=== PATIENT | female | born 1995 | race Two or more races ===

== ENCOUNTER 2016-10-22 21:06 | Emergency (ER) | payer OTHER ==
[2016-10-22 21:39] VITALS: BP 124/62; PULSE 78; RESP 18; TEMP 98; O2SAT 97
--- NOTE | 2016-10-22 22:32 | UCPHY ---
H & P Time Seen by Provider: 10/22/16 22:10 Patient Type: Established HPI/ROS: 21-year-old female presents complaining of earache and sore throat, she states she is being treated for strep with Augmentin. She has taken Augmentin for 3 days. She complains if she has worsening nasal congestion. She states her sore throat is actually improving. She has not been using a decongestant or a nasal spray. Review of systems As per HPI positive URI symptoms positive nasal congestion General no fever no chills no weakness HEENT no eye pain no eye discharge. No eye redness, positive sore throat Respiratory no cough, no shortness of breath Cardiac no chest pain, no peripheral edema GI no abdominal pain, no diarrhea, no constipation, no nausea, no vomiting no flank pain, no hematuria, no dysuria Musculoskeletal no myalgias, no joint pain Heme no easy bruising, no easy bleeding Endo no polyuria, no polydipsia Skin no rashes, no pruritus Neuro no syncope, no dizziness, no headaches Psych is no suicidal ideation, no homicidal ideation Past Medical/Surgical History: Depression Social History: College student Smoking Status: Never smoked Physical Exam: Alert and oriented in no acute distress nontoxic appearance, afebrile Atraumatic normocephalic Extraocular muscles intact, anicteric Right TM mild erythema no bulging, left TM normal Neck-supple, positive anterior cervical lymphadenopathy mildly tender to palpation Oropharynx positive enlarged tonsils, erythematous, no uvular deviation, no purulent exudate, tolerating own secretions, no trismus Lungs clear to auscultation bilaterally Heart regular rate and rhythm Abdomen normoactive bowel sounds soft nontender Extremities no cyanosis clubbing edema Skin no rash Constitutional: Initial Vital Signs Temperature (C) 36.6 C 10/22/16 21:37 Heart Rate 78 10/22/16 21:37 Respiratory Rate 18 10/22/16 21:37 Blood Pressure 124/62 H 10/22/16 21:37 O2 Sat (%) 97 10/22/16 21:37 O2 Delivery Mode Room Air Allergies/Adverse Reactions: No Known Allergies Allergy (Unverified 07/18/16 19:41) Home Medications: Medication Instructions Recorded Mononessa 28 Tablet 07/18/16 Sertraline HCl 07/18/16 Medical Decision Making ED Course/Re-evaluation: Patient seen and evaluated for nasal congestion, earache, actually improving sore throat Patient on Augmentin x3 days Physical exam consistent with mild right otitis media, pharyngitis and nasal congestion Impression Right otitis media Nasal congestion Plan Continue Augmentin for full course Use a decongestant daily Increase fluid intake Nasal steroid such as fluticasone daily x7 days Follow up with primary care physician if not improving Departure - Departure Disposition: Home, Routine, Self-Care Clinical Impression: Nasal congestion, Right otitis media Condition: Good Instructions: Pseudoephedrine (By mouth), Otitis Media (ED), Rhinosinusitis (ED ) Additional Instructions: Use a decongestant such as sudafed, or mucinex. Drink lots of liquids Flonase or fluticasone 2 puffs each nostril for 5-7 days Referrals: NONE *PRIMARY CARE P,. [Primary Care Provider] - As per Instructions - PQRS PQRS Measurement: na
== END 2016-10-22 22:50 | disposition home or self-care (01) ==
LOC: CED 21:06
DX: H66.91 Otitis media, unspecified, right ear (principal); R09.81 Nasal congestion; R07.0 Pain in throat
CPT/HCPCS: 99213-PO; G0463-PO

== ENCOUNTER 2017-12-10 10:06 | Emergency (ER) | payer OTHER ==
[2017-12-10 10:51] LABS: PLATELET COUNT 268 10^3/uL (150-400)
--- NOTE | 2017-12-10 11:07 | EDPHY ---
H & P Stated Complaint: periumb pain N/V/D since this am Time Seen by Provider: 12/10/17 11:06 HPI/ROS: HPI: This is a 22-year-old female who presents with Chief Complaint: periumbilical pain N/V/D since this am Location: Periumbilical Quality: Nausea, vomiting, diarrhea Duration: Approximately 3-5 hours prior to arrival Signs and Symptoms: no fever, no nausea, no vomiting, no hematemesis, no blood in stool, no abdominal bloating, no diarrhea, no back pain, no urinary symptoms , no testicular/groin pain, no indigestion, no chest pain, no shortness of breath Timing: Acute, intermittent episodes Severity: [id number] Context: Patient is a local [employer] student presents with waking up this morning approximately 3-5 hours prior to arrival with complaints of nausea, vomiting of stomach contents x2, and 3 loose stools. She denies any hematemesis/blood in stool/fever. She has roommates and works at [employer]. She is very concerned as she feels weak and is unable to take her final this evening. Takes oral control pills and does not get a regular period. She is sexually active but does not have concerns of being or having an STD. Denies vaginal discharge/vaginal bleeding. She has been able to sip some Gatorade prior to arrival. She took and over to the emergency room. No recent foreign travel or antibiotic use. Modifying Factors: None Comment: ROS: see HPI Constitutional: No fever, no chills, no weight loss Eyes: No blurred vision Respiratory: No shortness of breath, no cough Cardiovascular: No chest pain, no palpitations Gastrointestinal: + nausea, + vomiting, + diarrhea, no hematemesis, no blood in stool Genitourinary: No dysuria, no blood in urine Extremities: No myalgias, no edema Neurologic: No weakness, no numbness Skin: No rashes, no petechiae Hematologic: No bruising, no bleeding MEDICAL/SURGICAL/SOCIAL HISTORY: Medical history: Migraines, major depression Surgical history: Denies Social history: Family history noncontributory. CONSTITUTIONAL: Extremely polite and nontoxic-appearing young adult white female, awake and alert, no obvious distress HEENT: Atraumatic and normocephalic, PERRL, EOMI. Nares patent; no rhinorrhea; no nasal mucosal edema. Tympanic membranes clear. Oropharynx clear, no exudate and moist pink mucosa. Airway patent. No lymphadenopathy. No meningismus. Cardiovascular: Normal S1/S2, regular rate, regular rhythm, without murmur rub or gallop. PULMONARY/CHEST: Symmetrical and nontender. Clear to auscultation bilaterally. Good air movement. No accessory muscle usage. ABDOMEN: Soft, nondistended, nontender, no rebound, no guarding, no peritoneal signs, no masses or organomegaly. No CVAT. EXTREMITIES: 2/2 pulses, strength 5/5, no deformities, no clubbing, no cyanosis or edema. NEUROLOGICAL: no focal neuro deficits. GCS 15. SKIN: Warm and dry, no erythema. no rash. Good capillary refill. Source: Patient Exam Limitations: No limitations - Personal History Current Tetanus/Diphtheria Vaccine: Unsure - Medical/Surgical History Hx Asthma: No Hx Chronic Respiratory Disease: No Hx Diabetes: No Hx Cardiac Disease: No Hx Renal Disease: No Hx Cirrhosis: No Hx Alcoholism: No Hx HIV/AIDS: No Hx Splenectomy or Spleen Trauma: No Other PMH: migraines, depression - Social History Smoking Status: Never smoked Constitutional: Initial Vital Signs Temperature (C) 37.1 C 12/10/17 10:12 Heart Rate 79 12/10/17 10:12 Respiratory Rate 16 12/10/17 10:12 Blood Pressure 135/77 H 12/10/17 10:12 O2 Sat (%) 98 12/10/17 10:12 O2 Delivery Mode Room Air Allergies/Adverse Reactions: No Known Allergies Allergy (Verified 12/10/17 10:12) Home Medications: Medication Instructions Recorded Mononessa 28 Tablet 07/18/16 Sertraline HCl 07/18/16 Cefuroxime Axetil [Ceftin (*)] 250 mg PO BID #14 tab 12/10/17 Ondansetron Odt [Zofran Odt 4 mg 4 mg PO Q4 PRN #12 tab 12/10/17 (*)] Medical Decision Making ED Course/Re-evaluation: Labs, urinalysis, IV fluids, IV medications ordered Vital signs reviewed and no systemic signs. Given 1 L normal saline, IV Zofran, IV Toradol upon arrival Doubt female abdominal pathology. Labs reviewed and show mild leukocytosis with left shift. No acute kidney injury/electrolyte imbalance/elevated LFTs Urinalysis shows infection; sent for urine culture; given 2 g IV Rocephin and prescription for Ceftin Passed p.o. Trial prior to discharge. Abdomen is relatively soft and benign; doubt surgical process including low yield for appendicitis. Given school excuse per patient request as she has finals this evening. This patient was seen under the supervision of my secondary supervising physician. I evaluated care for this patient independently. Differential Diagnosis: Abdominal pain including but not limited to appendicitis, cholecystitis, gastritis and urinary tract infection. - Data Points Laboratory Results: Laboratory Results 12/10/17 10:40 12/10/17 10:40 12/10/17 12/10/17 12/10/17 10:40 10:40 10:40 WBC 12.93 10^3/uL H 10^3/uL (3.80-9.50) RBC 4.73 10^6/uL 10^6/uL (4.18-5.33) Hgb 14.7 g/dL g/dL (12.6-16.3) Hct 41.5 % % (38.0-47.0) MCV 87.7 fL fL (81.5-99.8) MCH 31.1 pg pg (27.9-34.1) MCHC 35.4 g/dL g/dL (32.4-36.7) RDW 12.0 % % (11.5-15.2) Plt Count 268 10^3/uL 10^3/uL (150-400) MPV 9.5 fL fL (8.7-11.7) Neut % (Auto) 85.5 % H % (39.3-74.2) Lymph % (Auto) 7.8 % L % (15.0-45.0) [place] % (Auto) 6.0 % % (4.5-13.0) Eos % (Auto) 0.2 % L % (0.6-7.6) Baso % (Auto) 0.2 % L % (0.3-1.7) Nucleat RBC Rel Count 0.0 % % (0.0-0.2) Absolute Neuts (auto) 11.05 10^3/uL H 10^3/uL (1.70-6.50) Absolute Lymphs (auto) 1.01 10^3/uL 10^3/uL (1.00-3.00) Absolute Monos (auto) 0.77 10^3/uL 10^3/uL (0.30-0.80) Absolute Eos (auto) 0.03 10^3/uL 10^3/uL (0.03-0.40) Absolute Basos (auto) 0.03 10^3/uL 10^3/uL (0.02-0.10) Absolute Nucleated RBC 0.00 10^3/uL 10^3/uL (0-0.01) Immature Gran % 0.3 % % (0.0-1.1) Immature Gran # 0.04 10^3/uL 10^3/uL (0.00-0.10) Sodium 143 mEq/L mEq/L (135-145) Potassium 4.3 mEq/L mEq/L (3.5-5.2) Chloride 109 mEq/L mEq/L (97-110) Carbon Dioxide 20 mEq/l L mEq/l (22-31) Anion Gap 14 mEq/L mEq/L (8-16) BUN 13 mg/dL mg/dL (7-23) Creatinine 0.8 mg/dL mg/dL (0.6-1.0) Estimated GFR > 60 Glucose 106 mg/dL H mg/dL (70-100) Calcium 9.5 mg/dL mg/dL (8.5-10.4) Total Bilirubin 0.7 mg/dL mg/dL (0.1-1.4) Conjugated Bilirubin 0.5 mg/dL mg/dL (0.0-0.5) Unconjugated Bilirubin 0.2 mg/dL mg/dL (0.0-1.1) AST 31 IU/L IU/L (14-46) ALT 16 IU/L IU/L (9-52) Alkaline Phosphatase 103 IU/L IU/L (38-126) Total Protein 7.1 g/dL g/dL (6.3-8.2) Albumin 4.4 g/dL g/dL (3.5-5.0) Urine Color Urine Appearance Urine pH Ur Specific [place] Urine Protein Urine Ketones Urine Blood Urine Nitrate Urine Bilirubin Urine Urobilinogen Ur Leukocyte Esterase Urine RBC Urine WBC Ur Epithelial Cells Urine Bacteria Urine Mucus Urine Glucose Urine Test 12/10/17 12/10/17 10:20 10:20 WBC RBC Hgb Hct MCV MCH MCHC RDW Plt Count MPV Neut % (Auto) Lymph % (Auto) [place] % (Auto) Eos % (Auto) Baso % (Auto) Nucleat RBC Rel Count Absolute Neuts (auto) Absolute Lymphs (auto) Absolute Monos (auto) Absolute Eos (auto) Absolute Basos (auto) Absolute Nucleated RBC Immature Gran % Immature Gran # Sodium Potassium Chloride Carbon Dioxide Anion Gap BUN Creatinine Estimated GFR Glucose Calcium Total Bilirubin Conjugated Bilirubin Unconjugated Bilirubin AST ALT Alkaline Phosphatase Total Protein Albumin Urine Color PALE YELLOW Urine Appearance MODERATELY TURBID Urine pH 5.0 (5.0-7.5) Ur Specific [place] 1.005 (1.002-1.030) Urine Protein NEGATIVE (NEGATIVE) Urine Ketones NEGATIVE (NEGATIVE) Urine Blood 1+ H (NEGATIVE) Urine Nitrate NEGATIVE (NEGATIVE) Urine Bilirubin NEGATIVE (NEGATIVE) Urine Urobilinogen NEGATIVE EU EU (0.2-1.0) Ur Leukocyte Esterase 1+ H (NEGATIVE) Urine RBC 5-10 /hpf H /hpf (0-3) Urine WBC 5-10 /hpf H /hpf (0-3) Ur Epithelial Cells TRACE /lpf /lpf (NONE-1+) Urine Bacteria 4+ /hpf H /hpf (NONE SEEN) Urine Mucus TRACE /lpf /lpf (NONE-1+) Urine Glucose NEGATIVE (NEGATIVE) Urine Test NEGATIVE Medications Given: Discontinued Medications Ceftriaxone Sodium 2 gm/ (Sterile Water) 20 mls @ 300 mls/hr IV EDNOW ONE PRN Reason: Protocol Stop: 12/10/17 11:15 Last Admin: 12/10/17 11:45 Dose: 20 mls Ketorolac Tromethamine (Toradol) 30 mg IVP EDNOW ONE Stop: 12/10/17 11:12 Last Admin: 12/10/17 11:20 Dose: 30 mg Ondansetron HCl (Zofran) 4 mg IVP EDNOW ONE Stop: 12/10/17 11:12 Last Admin: 12/10/17 11:19 Dose: 4 mg Departure - Departure Disposition: Home, Routine, Self-Care Clinical Impression: Acute lower UTI, Viral gastroenteritis Condition: Good Instructions: Urinary Tract Infection in Women (ED), Gastroenteritis (ED) Additional Instructions: Consume a minimum of 8-10 glasses of water or electrolyte fluid replacement drinks that include Gatorade, Powerade, Pedialyte. Eat a bland diet for the next 48 hours and then slowly advance as tolerated. Take Zofran 1 tab every 4 hours as needed for nausea, vomiting. Take Ceftin twice daily x7 days to treat your urinary tract infection. Return to the Emergency Room if symptoms do not resolve in the next 72 hours, you spike a fever > 102 F, or experience intractable abdominal pain/nausea/ vomiting. Referrals: [facility],. [Clinic] - 3-4 days, if not improved Stand Alone Forms: School Excuse Prescriptions: Cefuroxime Axetil [Ceftin (*)] 250 mg PO BID #14 tab Ondansetron Odt [Zofran Odt 4 mg (*)] 4 mg PO Q4 PRN #12 tab PRN Reason: Nausea/Vomiting, Use 1st
[2017-12-10] MEDS ORDERED: ONDANSETRON 4 MG/2 ML VIAL IVP ONE (11:11)
[2017-12-10] MEDS ORDERED: KETOROLAC 30 MG/1 ML SDV IVP ONE (11:11)
[2017-12-10] MEDS ORDERED: cefTRIAXone 2 GM in STERILE WATER INJ 20 ML IV ONE (11:12)
[2017-12-10 11:21] VITALS: BP 108/65
== END 2017-12-10 11:47 | disposition home or self-care (01) ==
DX: A08.4 Viral intestinal infection, unspecified (principal); N39.0 Urinary tract infection, site not specified; B96.89 Other specified bacterial agents as the cause of diseases classified elsewhere
CPT/HCPCS: 96374; J0696; J1885; J2405

== ENCOUNTER 2018-08-22 19:56 | Emergency (ER) | payer OTHER ==
--- NOTE | 2018-08-22 20:18 | EDPHY ---
H & P Stated Complaint: Fall, Left Elbow Injury Time Seen by Provider: 08/22/18 20:18 HPI/ROS: HPI CHIEF COMPLAINT: Mechanical trip and fall, left elbow injury, left shoulder pain, headache. HISTORY OF PRESENT ILLNESS: 22-year-old female, she was wearing slippers, she was out in the parking garage where was I see and slippery and she fell. She landed on her left elbow left shoulder and hit the back of her head on the concrete ground. She reports to me that her head "bounced off the ground"and reports to me she has a headache. Main complaint left elbow pain. No LOC, denies vomiting. Does have a headache. Mild 3/10 posterior. But main complaint left elbow pain. Has pain when she supinates and pronates her forearm. Patient denies neck pain Past Medical History: Denies medical history Past Surgical History: Denies surgical history Social History: Denies drugs alcohol tobacco. Family History: Noncontributory ROS REVIEW OF SYSTEMS: 10 Systems were reviewed and negative with the exception of the elements mentioned in the history of present illness. Exam Constitutional appears well nontoxic triage nursing summary reviewed, vital signs reviewed, awake/alert. Eyes normal conjunctivae and sclera, EOMI, PERRLA. HENT head/neck: Posterior occiput no large hematoma but does have some mild tender palpation no crepitus, otherwise head and neck exam atraumatic,, moist mucus membranes, no epistaxis, neck supple/ no meningismus, no raccoon eyes. Respiratory clear to auscultation bilaterally, normal breath sounds, no respiratory distress, no wheezing. Cardiovascular rate normal, regular rhythm, no murmur, no edema, distal pulses normal. Gastrointestinal soft, non-tender, no rebound, no guarding, normal bowel sounds, no distension, no pulsatile mass. Genitourinary no CVA tenderness. Musculoskeletal left upper extremity neurovascularly intact with good distal pulse, good cap refill, full range of motion however with supination pronation over left arm she has discomfort to the posterior left elbow, also tender palpation over the left lateral shoulder but axillary nerve intact, sensation intact, full range of motion of left shoulder. no midline vertebral tenderness, full range of motion, no calf swelling, no tenderness of extremities, no meningismus, good pulses, neurovascularly intact. Skin pink, warm, & dry, no rash, skin atraumatic. Neurologic awake, alert and oriented x 3, AAOx3, moves all 4 extremities equally, motor intact, sensory intact, CN II-XII intact, normal cerebellar, normal vision, normal speech. Psychiatric normal mood/affect. Heme/Lymph/Immune no lymphadenopathy. Differential Diagnosis: Includes but is not limited to in a particular order left elbow fracture, radial head occult fracture, soft tissue injury, contusion , closed head injury, intracranial bleed, skull fracture, subdural, epidural, shoulder strain, shoulder fracture, shoulder contusion Medical Decision Making: Plan for this patient x-ray left shoulder, x-ray left elbow, CT scan head without contrast for trauma. Re-evaluation: X-ray of the left elbow: No fracture visualized. However given the amount of pain she is having supination pronation and left posterior elbow pain with MAC it is patient be splinted posterior long-arm splint and sling for comfort and immobilization. X-ray left shoulder reviewed by myself negative for acute fracture. Interpreted by myself. CT scan head without contrast is pending. CT scan head without contrast called to me by Dr. Gavin, negative for acute bleed. No evidence subdural epidural traumatic subarachnoid. Patient has been splinted posterior long-arm left arm with sling for comfort. She is neurovascularly intact post splint placement. Good cap refill, normal sensation. I do recommend she follows up with Orthopedics on outpatient basis. Additionally return precautions discussed. Source: Patient - Personal History LMP (Females 10-55): IUD In Place Current Tetanus Diphtheria and Acellular Pertussis (TDAP): Yes - Medical/Surgical History Hx Asthma: No Hx Chronic Respiratory Disease: No Hx Diabetes: No Hx Cardiac Disease: No Hx Renal Disease: No Hx Cirrhosis: No Hx Alcoholism: No Hx HIV/AIDS: No Hx Splenectomy or Spleen Trauma: No Other PMH: migraines, depression - Social History Smoking Status: Never smoked Constitutional: Initial Vital Signs Temperature (C) 36.7 C 08/22/18 20:00 Heart Rate 92 08/22/18 20:00 Respiratory Rate 18 08/22/18 20:00 Blood Pressure 137/82 H 08/22/18 20:00 O2 Sat (%) 96 08/22/18 20:00 O2 Delivery Mode Room Air Allergies/Adverse Reactions: No Known Allergies Allergy (Verified 08/22/18 19:58) Home Medications: Medication Instructions Recorded Sertraline HCl 07/18/16 Departure - Departure Disposition: Home, Routine, Self-Care Clinical Impression: Multiple contusions Left shoulder strain Qualifiers: Encounter type: initial encounter Qualified Code(s): S46.912A - Strain of unspecified muscle, fascia and tendon at shoulder and upper arm level, left arm , initial encounter Elbow contusion Qualifiers: Encounter type: initial encounter Laterality: left Qualified Code(s): S50.02XA - Contusion of left elbow, initial encounter Condition: Good Instructions: Concussion (ED), Head Injury (ED), Contusion in Adults (ED) Additional Instructions: 1. Splint for comfort. 2. Follow up with Orthopedics. Referrals: NONE *PRIMARY CARE P,. [Primary Care Provider] - As per Instructions Ephraim Dimas MD [Medical Doctor] - As per Instructions
[2018-08-22 21:36] VITALS: BP 121/80
== END 2018-08-22 21:36 | disposition home or self-care (01) ==
PROC: 2W39X1Z Immobilization of Left Upper Extremity using Splint (ICD-10-PCS; principal; 2018-08-22)
DX: S46.912A Strain of unspecified muscle, fascia and tendon at shoulder and upper arm level, left arm, initial encounter (principal); S50.02XA Contusion of left elbow, initial encounter; S09.90XA Unspecified injury of head, initial encounter; W01.0XXA Fall on same level from slipping, tripping and stumbling without subsequent striking against object, initial encounter; Y92.008 Other place in unspecified non-institutional (private) residence as the place of occurrence of the external cause; Y99.9 Unspecified external cause status; Y93.9 Activity, unspecified